=== PATIENT | female | born 1980 | race Caucasian/White ===

== ENCOUNTER 2022-03-05 16:23 | Inpatient (IN) | payer OTHER, SELFPAY ==
[~2022-03-05 16:23] MED LIST: Iopamidol-370 76% 500 ML 1 ML ONE
[2022-03-05] MEDS ORDERED: Ondansetron PF 4 MG/2 ML Vial ONE (16:30)
[2022-03-05] MEDS ORDERED: Boostrix 0.5 ML (Tdap) VIAL (>/=7 yrs of age) ONE (16:30)
[2022-03-05] MEDS ORDERED: Fentanyl 100 MCG/2 ML VIAL ONE ×2 (16:30→17:16)
[2022-03-05 16:48] LABS: #Basophils 0.1 thou/uL (0.0-0.2); #Eosinphils 0.1 thou/uL (0.0-0.7); #Lymphocytes 2.8 thou/uL (1.20-3.40); #Monocytes 0.5 thou/uL (0.11-0.59); #Neutrophils 5.6 thou/uL (1.40-6.50); %Basophils 0.7 % (0.0-1.0); %Eosinophils 1.1 % (0.0-10.0); %Lymphocytes 30.8 % (21.0-51.0); %Monocytes 5.5 % (0.0-10.0); Hemoglobin 12.7 g/dL (12.0-16.0); Mean Corpuscular HGB CONC 32.8 g/dL (32.0-36.0); Mean Corpuscular Hemoglobin 29.3 pg (27.0-31.0); Mean Corpuscular Volume 89.6 fL (78.0-98.0); Mean Platelet Volume 7.3 fL (7.4-10.4); Platelet Count 272 thou/uL (130-400); Red Blood Cell (RBC) Count 4.33 mill/uL (4.20-5.40); White Blood Cell (WBC) Count 9.1 thou/uL (4.8-10.8)
[2022-03-05 16:55] LABS: BHCG - Serum Negative (NEGATIVE); Pregs Control Background? CLEAR/WHITE (CLR/WHITE); Pregs Control Bar Appear? YES (CONTROL BAR)
[2022-03-05 17:09] LABS: ALT (SGPT) 99 U/L (8-55); AST (SGOT) 99 U/L (5-34); Albumin 3.8 g/dL (3.5-5.0); Alkaline Phosphatase 42 U/L (40-110); Anion Gap 15 mmol/L (10-20); BUN (Urea Nitrogen) 12 mg/dL (7.0-18.7); Bilirubin, Total 1.1 mg/dL (0.2-1.2); CRP (Inflammatory) Less than 0.50 mg/dL (= or < 0.5); Calc. Creatinine Clearance 0 mL/min (70-130); Calcium 8.6 mg/dL (7.8-10.44); Carbon Dioxide 23 mmol/L (22-29); Chloride 105 mmol/L (98-107); Estimated GFR 72; Globulin 2.6 g/dL (2.4-3.5); Glucose 98 mg/dL (70-105); Lipase 38 U/L (8-78); Potassium 3.7 mmol/L (3.5-5.1); Protein, Total 6.4 g/dL (6.0-8.3); Sodium 139 mmol/L (136-145)
[2022-03-05] MEDS ORDERED: Ondansetron ODT 4 MG TAB PO PRN (18:30)
[2022-03-05] MEDS ORDERED: Sodium Chloride 0.9% 1,000 ML IV SCH (18:30)
[2022-03-05] MEDS ORDERED: Ondansetron PF 4 MG/2 ML Vial IVP PRN (18:30)
[2022-03-05] MEDS ORDERED: Dextrose 5% in Water 1,000 ML IV PRN (18:30)
[2022-03-05] MEDS ORDERED: Dextrose 50% Abboject 50 ML SYRINGE SLOW IVP PRN (18:30)
[2022-03-05 18:35] LABS: Bilirubin Negative (Negative); Blood, Urine Negative (Negative); Clarity Clear (Clear); Glucose, Urine (Dipstick) Normal (Negative); Ketone, Urine 20 mg/dL (Negative); Leukocyte Negative Leu/uL (Negative); Nitrite Negative (Negative); Protein, Urine (Dipstick) 20 mg/dL (Neg-Trace); Urobilinogen Normal mg/dL (Less than 2); pH, Urine 5.5 (5.0-9.0)
[2022-03-05 18:36] LABS: Pregnancy Test - Urine (BHCG) Negative (Negative); Pregu Control Background? CLEAR/WHITE (CLR/WHITE); Pregu Control Bar Appear? YES (CONTROL BAR); Specific Gravity 1.044 (1.002-1.036); Specific Gravity, Urine 1.044 (1.002-1.036)
[2022-03-05 19:00] LABS: Hemoglobin 11.9 g/dL (12.0-16.0)
[2022-03-05 19:12] LABS: INR-International Normal Ratio 1.1
[2022-03-05 19:13] LABS: PTT 25.1 sec (22.9-36.1)
[2022-03-05] MEDS ORDERED: Promethazine HCl 12.5 MG in Sodium Chloride 0.9% 50 ML IVPB PRN (19:34)
[2022-03-05] MEDS ORDERED: Promethazine HCl 12.5 MG in Sodium Chloride 0.9% 50 ML IVPB SCH (19:45)
[2022-03-05] MEDS ORDERED: Promethazine HCl 25 MG/ML VIAL IVPB SCH (19:45)
[2022-03-05 20:35] LABS: SARS-CoV-2 NAA Rapid Test Not Detected (NotDetected)
[2022-03-05 21:18] VITALS: BMI 16.7
[2022-03-05] MEDS: Scopolamine 1.5 mg/72 hour Patch TD SCH (21:42)
[2022-03-05] MEDS: Sodium Chloride 0.9% 1,000 ML IV SCH (21:43)
[2022-03-05] MEDS: Famotidine/PF 20 mg/2ml Vial SLOW IVP SCH (21:43)
[2022-03-05] MEDS: Acetaminophen 500 MG TAB PO SCH (23:39)
[2022-03-05] MEDS: traMADol HCl 50 MG TAB PO SCH (23:40)
[2022-03-05] MEDS: Senokot S 8.6-50 MG TAB PO SCH (23:42)
[2022-03-06 01:18] LABS: Hemoglobin 10.8 g/dL (12.0-16.0)
[2022-03-06 04:18] LABS: #Eosinphils 0.1 thou/uL (0.0-0.7); #Lymphocytes 2.1 thou/uL (1.20-3.40); #Monocytes 0.7 thou/uL (0.11-0.59); %Basophils 0.4 % (0.0-1.0); %Eosinophils 1.4 % (0.0-10.0); %Lymphocytes 23.1 % (21.0-51.0); %Monocytes 7.8 % (0.0-10.0); %Neutrophils 67.3 % (42.0-75.0); Hemoglobin 10.7 g/dL (12.0-16.0); Mean Corpuscular HGB CONC 33.3 g/dL (32.0-36.0); Mean Corpuscular Volume 89.9 fL (78.0-98.0); Mean Platelet Volume 7.5 fL (7.4-10.4); Platelet Count 206 thou/uL (130-400); RBC Distribution Width 11.8 % (11.5-14.5); Red Blood Cell (RBC) Count 3.56 mill/uL (4.20-5.40); White Blood Cell (WBC) Count 8.9 thou/uL (4.8-10.8)
[2022-03-06 04:37] LABS: Anion Gap 9 mmol/L (10-20); BUN (Urea Nitrogen) 10 mg/dL (7.0-18.7); Calc. Creatinine Clearance 74 mL/min (70-130); Calcium 7.9 mg/dL (7.8-10.44); Carbon Dioxide 22 mmol/L (22-29); Chloride 109 mmol/L (98-107); Estimated GFR 96; Glucose 89 mg/dL (70-105); Magnesium 1.9 mg/dL (1.6-2.6); Phosphorus 3.5 mg/dL (2.3-4.7); Potassium 3.9 mmol/L (3.5-5.1); Sodium 136 mmol/L (136-145)
[2022-03-06] MEDS: Sodium Chloride 0.9% 1,000 ML IV SCH ×2 (05:27→12:01)
[2022-03-06] MEDS: Acetaminophen 500 MG TAB PO SCH (05:27)
[2022-03-06] MEDS: traMADol HCl 50 MG TAB PO SCH ×3 (05:28→17:41)
[2022-03-06 06:56] LABS: Hemoglobin 10.6 g/dL (12.0-16.0)
[2022-03-06] MEDS: Famotidine/PF 20 mg/2ml Vial SLOW IVP SCH ×2 (09:43→21:04)
[2022-03-06] MEDS: Senokot S 8.6-50 MG TAB PO SCH ×2 (09:49→21:10)
[2022-03-06 12:51] LABS: Hemoglobin 10.9 g/dL (12.0-16.0)
[2022-03-06] MEDS ORDERED: clonazePAM 0.5 MG TAB PO PRN (13:23)
[2022-03-06] MEDS: Cyclobenzaprine 10 MG TAB PO PRN (16:08)
[2022-03-06] MEDS: Metamucil PACK PER TUBE SCH (16:39)
[2022-03-06 17:58] LABS: Bilirubin Negative (Negative); Blood, Urine Negative (Negative); Clarity Clear (Clear); Glucose, Urine (Dipstick) Normal (Negative); Ketone, Urine 10 mg/dL (Negative); Leukocyte Negative Leu/uL (Negative); Nitrite Negative (Negative); Protein, Urine (Dipstick) Negative (Neg-Trace); Specific Gravity, Urine 1.005 (1.002-1.036); Urobilinogen Normal mg/dL (Less than 2); pH, Urine 5.5 (5.0-9.0)
[2022-03-06] MEDS: Fentanyl 100 MCG/2 ML VIAL SLOW IVP PRN (21:05)
[2022-03-06] MEDS: Simethicone Chewable 80 MG TAB PO PRN (22:06)
[2022-03-07] MEDS: traMADol HCl 50 MG TAB PO SCH ×4 (00:08→18:40)
[2022-03-07 05:37] LABS: #Basophils 0.1 thou/uL (0.0-0.2); #Eosinphils 0.2 thou/uL (0.0-0.7); #Lymphocytes 1.4 thou/uL (1.20-3.40); #Monocytes 0.5 thou/uL (0.11-0.59); #Neutrophils 4.6 thou/uL (1.40-6.50); %Basophils 0.9 % (0.0-1.0); %Eosinophils 2.4 % (0.0-10.0); %Lymphocytes 20.7 % (21.0-51.0); %Monocytes 7.8 % (0.0-10.0); %Neutrophils 68.2 % (42.0-75.0); Hemoglobin 11.1 g/dL (12.0-16.0); Mean Corpuscular HGB CONC 33.4 g/dL (32.0-36.0); Mean Corpuscular Volume 89.8 fL (78.0-98.0); Mean Platelet Volume 7.5 fL (7.4-10.4); Platelet Count 197 thou/uL (130-400); RBC Distribution Width 11.9 % (11.5-14.5); Red Blood Cell (RBC) Count 3.69 mill/uL (4.20-5.40); White Blood Cell (WBC) Count 6.7 thou/uL (4.8-10.8)
[2022-03-07 06:00] LABS: ALT (SGPT) 115 U/L (8-55); AST (SGOT) 57 U/L (5-34); Albumin 3.2 g/dL (3.5-5.0); Alkaline Phosphatase 37 U/L (40-110); Anion Gap 10 mmol/L (10-20); BUN (Urea Nitrogen) 4 mg/dL (7.0-18.7); Bilirubin, Total 1.5 mg/dL (0.2-1.2); Calc. Creatinine Clearance 80 mL/min (70-130); Carbon Dioxide 24 mmol/L (22-29); Chloride 107 mmol/L (98-107); Estimated GFR 106; Globulin 2.1 g/dL (2.4-3.5); Glucose 89 mg/dL (70-105); Magnesium 1.8 mg/dL (1.6-2.6); Phosphorus 3.1 mg/dL (2.3-4.7); Potassium 3.8 mmol/L (3.5-5.1); Protein, Total 5.3 g/dL (6.0-8.3); Sodium 137 mmol/L (136-145)
[2022-03-07] MEDS: Cyclobenzaprine 10 MG TAB PO PRN ×2 (08:35→20:49)
[2022-03-07] MEDS: Senokot S 8.6-50 MG TAB PO SCH ×2 (08:35→20:48)
[2022-03-07] MEDS: Famotidine/PF 20 mg/2ml Vial SLOW IVP SCH (08:36)
[2022-03-07] MEDS: Polyethylene Glycol 3350 17 GM Packet PO SCH (08:36)
[2022-03-07] MEDS: Metamucil PACK PER TUBE SCH (08:36)
[2022-03-07] MEDS ORDERED: Cyclobenzaprine 10 MG TAB PO SCH (11:00)
[2022-03-08] MEDS: traMADol HCl 50 MG TAB PO SCH ×5 (01:19→22:49)
[2022-03-08 05:50] LABS: #Eosinphils 0.3 thou/uL (0.0-0.7); #Lymphocytes 1.4 thou/uL (1.20-3.40); #Monocytes 0.6 thou/uL (0.11-0.59); #Neutrophils 4.3 thou/uL (1.40-6.50); %Basophils 0.7 % (0.0-1.0); %Eosinophils 4.7 % (0.0-10.0); %Lymphocytes 20.4 % (21.0-51.0); %Monocytes 8.5 % (0.0-10.0); %Neutrophils 65.8 % (42.0-75.0); Hemoglobin 11.3 g/dL (12.0-16.0); Mean Corpuscular HGB CONC 33.2 g/dL (32.0-36.0); Mean Corpuscular Hemoglobin 29.7 pg (27.0-31.0); Mean Corpuscular Volume 89.6 fL (78.0-98.0); Mean Platelet Volume 7.3 fL (7.4-10.4); Platelet Count 212 thou/uL (130-400); RBC Distribution Width 11.9 % (11.5-14.5); Red Blood Cell (RBC) Count 3.79 mill/uL (4.20-5.40); White Blood Cell (WBC) Count 6.6 thou/uL (4.8-10.8)
[2022-03-08] MEDS: Senokot S 8.6-50 MG TAB PO SCH ×2 (07:45→20:06)
[2022-03-08] MEDS: Metamucil PACK PER TUBE SCH (07:45)
[2022-03-08] MEDS: Polyethylene Glycol 3350 17 GM Packet PO SCH (07:45)
[2022-03-08] MEDS: Fentanyl 100 MCG/2 ML VIAL SLOW IVP PRN (08:43)
[2022-03-08] MEDS: Simethicone Chewable 80 MG TAB PO PRN (17:35)
[2022-03-08] MEDS: Scopolamine 1.5 mg/72 hour Patch TD SCH (20:06)
[2022-03-08] MEDS: Cyclobenzaprine 10 MG TAB PO PRN (20:07)
[2022-03-08] MEDS: traMADol HCl 50 MG TAB PO PRN (22:49)
[2022-03-09] MEDS: traMADol HCl 50 MG TAB PO SCH (05:41)
[2022-03-09] MEDS: traMADol HCl 50 MG TAB PO PRN (05:42)
[2022-03-09] MEDS: Cyclobenzaprine 10 MG TAB PO PRN (05:42)
[2022-03-09 06:02] LABS: #Basophils 0.1 thou/uL (0.0-0.2); #Eosinphils 0.3 thou/uL (0.0-0.7); #Lymphocytes 1.7 thou/uL (1.20-3.40); #Monocytes 0.6 thou/uL (0.11-0.59); #Neutrophils 3.3 thou/uL (1.40-6.50); %Eosinophils 4.7 % (0.0-10.0); %Lymphocytes 28.4 % (21.0-51.0); %Monocytes 10.8 % (0.0-10.0); %Neutrophils 55.1 % (42.0-75.0); Hemoglobin 10.8 g/dL (12.0-16.0); Mean Corpuscular Hemoglobin 29.6 pg (27.0-31.0); Mean Corpuscular Volume 89.7 fL (78.0-98.0); Mean Platelet Volume 7.3 fL (7.4-10.4); Platelet Count 226 thou/uL (130-400); RBC Distribution Width 11.9 % (11.5-14.5); Red Blood Cell (RBC) Count 3.65 mill/uL (4.20-5.40)
[2022-03-09] MEDS: Fentanyl 100 MCG/2 ML VIAL SLOW IVP PRN (06:38)
[2022-03-09] MEDS: Polyethylene Glycol 3350 17 GM Packet PO SCH (08:45)
[2022-03-09] MEDS: Metamucil PACK PER TUBE SCH (08:45)
[2022-03-09] MEDS: Senokot S 8.6-50 MG TAB PO SCH ×2 (08:45→19:58)
[2022-03-09] MEDS ORDERED: traMADol HCl 50 MG TAB PO PRN (09:23)
[2022-03-09] MEDS ORDERED: Acetaminophen/Codeine 30-300mg Tablet PO PRN ×2 (09:24→09:25)
[2022-03-09] MEDS: Acetaminophen/Codeine 30-300mg Tablet PO SCH ×3 (09:53→19:59)
[2022-03-09] MEDS: Simethicone Chewable 80 MG TAB PO PRN ×2 (12:01→19:59)
[2022-03-09] MEDS: Famotidine 20 MG TAB PO SCH (18:10)
[2022-03-09] MEDS ORDERED: Lactated Ringer's 1,000 ML IV SCH (19:00)
[2022-03-10] MEDS: Acetaminophen/Codeine 30-300mg Tablet PO SCH ×2 (03:31→10:33)
[2022-03-10 06:29] LABS: #Basophils 0.1 thou/uL (0.0-0.2); #Eosinphils 0.3 thou/uL (0.0-0.7); #Lymphocytes 1.5 thou/uL (1.20-3.40); #Monocytes 0.6 thou/uL (0.11-0.59); #Neutrophils 3.5 thou/uL (1.40-6.50); %Eosinophils 4.6 % (0.0-10.0); %Lymphocytes 25.5 % (21.0-51.0); %Monocytes 9.6 % (0.0-10.0); %Neutrophils 59.4 % (42.0-75.0); Hemoglobin 11.2 g/dL (12.0-16.0); Mean Corpuscular HGB CONC 32.1 g/dL (32.0-36.0); Mean Corpuscular Hemoglobin 28.6 pg (27.0-31.0); Mean Corpuscular Volume 89.3 fL (78.0-98.0); Mean Platelet Volume 7.1 fL (7.4-10.4); Platelet Count 244 thou/uL (130-400); RBC Distribution Width 12.1 % (11.5-14.5); Red Blood Cell (RBC) Count 3.92 mill/uL (4.20-5.40); White Blood Cell (WBC) Count 5.9 thou/uL (4.8-10.8)
[2022-03-10 06:43] LABS: ALT (SGPT) 58 U/L (8-55); AST (SGOT) 16 U/L (5-34); Albumin 3.4 g/dL (3.5-5.0); Alkaline Phosphatase 42 U/L (40-110); Anion Gap 11 mmol/L (10-20); BUN (Urea Nitrogen) 8 mg/dL (7.0-18.7); Bilirubin, Total 1.2 mg/dL (0.2-1.2); Calc. Creatinine Clearance 79 mL/min (70-130); Calcium 8.7 mg/dL (7.8-10.44); Carbon Dioxide 27 mmol/L (22-29); Chloride 103 mmol/L (98-107); Estimated GFR 104; Globulin 2.5 g/dL (2.4-3.5); Glucose 86 mg/dL (70-105); Magnesium 1.9 mg/dL (1.6-2.6); Phosphorus 3.8 mg/dL (2.3-4.7); Potassium 3.7 mmol/L (3.5-5.1); Protein, Total 5.9 g/dL (6.0-8.3); Sodium 137 mmol/L (136-145)
[2022-03-10] MEDS: Senokot S 8.6-50 MG TAB PO SCH (10:33)
[2022-03-10] MEDS: Polyethylene Glycol 3350 17 GM Packet PO SCH (10:33)
[2022-03-10] MEDS ORDERED: Iopamidol-370 76% 500 ML 1 ML ONE (10:39)
[2022-03-10] MEDS: Metamucil PACK PER TUBE SCH (10:39)
[2022-03-10] MEDS: Famotidine 20 MG TAB PO SCH (10:40)
[2022-03-10 11:00] VITALS: BP 102/70; TEMP 97.7
== END 2022-03-10 13:50 | disposition home or self-care (01) | DRG 965 ==
LOC: ERS 16:23 → CCU 18:30 → SURG A 03-06 15:39
PROVIDERS: ADMIT Surgery; ATTEND Surgery
DX: S36.113A Laceration of liver, unspecified degree, initial encounter (principal); S36.420A Contusion of duodenum, initial encounter; S37.031A Laceration of right kidney, unspecified degree, initial encounter; G89.11 Acute pain due to trauma; C53.9 Malignant neoplasm of cervix uteri, unspecified; G43.909 Migraine, unspecified, not intractable, without status migrainosus; Z20.822 Contact with and (suspected) exposure to COVID-19; Z98.890 Other specified postprocedural states; Z82.49 Family history of ischemic heart disease and other diseases of the circulatory system; W55.19XA Other contact with horse, initial encounter
CPT/HCPCS: 36415; 70450; 71260; 72125; 74177; 80048; 80053; 81003; 81025; 81241; 83690; 83735; 84100; 84703; 85014; 85018; 85025; 85610; 85730; 86140; 86850; 86900; 86901; 90715; G0390; J2405; J2550; J3010; J7050; J7120; Q9967; S0028; U0002

== ENCOUNTER 2022-03-31 07:59 | Outpatient (CLI) | payer OTHER ==
[2022-03-31] MEDS ORDERED: Iopamidol 370 76% 50 ML VIAL FS ONE (14:04)
== END 2022-03-31 08:00 | disposition home or self-care (01) ==
LOC: BICCT 07:59
PROVIDERS: ATTEND Surgery
DX: S36.116D Major laceration of liver, subsequent encounter (principal); R10.9 Unspecified abdominal pain; R18.8 Other ascites
CPT/HCPCS: 74177; Q9967

== ENCOUNTER 2022-06-01 07:38 | Outpatient (CLI) | payer OTHER ==
[2022-06-01] MEDS ORDERED: Iopamidol 370 76% 100 ML VIAL ONE (15:52)
== END 2022-06-01 07:39 | disposition home or self-care (01) ==
LOC: CT 07:38
PROVIDERS: ATTEND Family Medicine
DX: S36.116D Major laceration of liver, subsequent encounter (principal); R10.9 Unspecified abdominal pain
CPT/HCPCS: 74177; Q9967